=== PATIENT | male | born 1990 | race Caucasian/White ===

== ENCOUNTER 2019-05-09 08:07 | Emergency (ER) | payer SELFPAY ==
[~2019-05-09] VITALS: Ht 175.3 cm; Wt 176.9 kg
[2019-05-09 08:11] VITALS: BP 138/81
--- NOTE | 2019-05-09 08:16 | NUR ---
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 DENIES DYSURIA,TRAUMA OR INJURY. PMH; HTN, UMBILICAL HERNIA. PATIENT STATES PAIN OF 10/10 AT THIS TIME. PATIENT POSITIONED FOR COMFORT; HOB ELEVATED; BEDRAILS UP X1; BED DOWN. ER MD MADE AWARE OF PT STATUS.
--- NOTE | 2019-05-09 08:20 | NUR ---
Patient being evaluated by DR MALDONADO at bedside.
[2019-05-09] MEDS ORDERED: KETOROLAC 60 MG/2 ML VIAL IM ONE (08:25)
[2019-05-09 08:46] VITALS: BP 138/81
--- NOTE | 2019-05-09 08:46 | NUR ---
Patient discharged with v/s stable. Written and verbal after care instructions given and explained. Patient alert, oriented and verbalized understanding of instructions. Ambulatory with steady gait. All questions addressed prior to discharge. ID band removed. Patient advised to follow up with PMD. Rx of MEWDROL, MOTRIN & ROBAXIN given. Patient educated on indication of medication including possible reaction and side effects. Opportunity to ask questions provided and answered.
== END 2019-05-09 08:46 | disposition home or self-care (01) ==
LOC: MED 08:07
DX: M54.40 Lumbago with sciatica, unspecified side (principal); G89.29 Other chronic pain; K46.9 Unspecified abdominal hernia without obstruction or gangrene; I10 Essential (primary) hypertension
CPT/HCPCS: 81002; 96372; 99283; J1885